=== PATIENT | male | born 1950 | race African-American/Black ===

== ENCOUNTER → 2018-09-15 | Outpatient (CLI) | payer BC ==
--- NOTE | 2018-09-16 13:53 | PCVCIMAG ---
APPROVED REPORT Study performed: 09/15/2018 14:23:02 EXAM: Comprehensive 2D, Doppler, and color-flow Echocardiogram Patient Location: Echo lab Room #: 2Status: routine BSA: 1.85 HR: 64 bpmBP: 128/68 mmHg Rhythm: NSR Other Information Study Quality: Good Risk Factors: Cardiac Risk Factors: HTN, Hyperlipidemia Indications CAD Hypertension/HDD S/P CABG.ESRD, 2D Dimensions IVSd: 8.78 (7-11mm)LVOT Diam: 23.70 (18-24mm) LVDd: 54.74 mm PWd: 9.76 (7-11mm)Ascending Ao: 34.44 (22-36mm) LVDs: 28.97 (25-40mm) Left Atrium: 39.64 (27-40mm) Aortic Root: 24.91 mm LV Single Plane 4CH: 56.83 % LV Single Plane 2CH: 66.61 % Volumes Left Atrial Volume (Systole) Single Plane 4CH: 69.08 mLSingle Plane 2CH: 66.44 mL Biplane LA Volume: 69.00 mLLA ESV Index: 37.00 mL/m2 Aortic Valve AoV Peak Sim.: 1.13 m/s AO Peak Gr.: 5.09 mmHgLVOT Max P.73 mmHg LVOT Max V: 0.97 m/s JOSE Vmax: 3.77 cm2 Mitral Valve E/A Ratio: 1.1 MV Decel. Time: 181.22 ms MV E Max Sim.: 1.02 m/s MV A Sim.: 0.92 m/s IVRT: 107.27 ms TDI E/Lateral E': 14.57E/Medial E': 12.75 Medial E' Sim.: 0.08 m/s Lateral E' Sim.: 0.07 m/s Pulmonary Valve PV Peak Sim.: 0.82 m/sPV Peak Gr.: 2.70 mmHg Pulmonary Vein P Vein S: 0.63 m/sP Vein A: 0.38 m/s P Vein D: 0.64 m/sP Vein A Dur.: 114.2 msec P Vein S/D Ratio: 0.98 Tricuspid Valve TR Peak Sim.: 2.43 m/s TR Peak Gr.: 23.74 mmHg TV Vmax: 0.71 m/sPA Pressure: 35.00 mmHg Left Ventricle The left ventricle is normal size. There is normal LV segmental wall motion. There is normal left ventricular wall thickness. Left ventricular systolic function is normal. The left ventricular ejection fraction is within the normal range. LVEF is 60-65%. Findings suggest the left atrial pressure is elevated. Right Ventricle The right ventricle is normal size. The right ventricular systolic function is normal. Atria Left atrium is mildly dilated. Right atrium is mildly dilated. Aortic Valve Aortic valve is trileaflet. The aortic valve is normal in structure and function. No aortic regurgitation is present. There is no aortic valvular stenosis. Mitral Valve The mitral valve is normal in structure. Moderate mitral regurgitation. No evidence of mitral valve stenosis. Tricuspid Valve The tricuspid valve is normal in structure. Moderate to severe tricuspid regurgitation with a PA pressure of 35 mmHg Mild pulmonary hypertension.. Pulmonic Valve The pulmonary valve is normal in structure. Trace pulmonic regurgitation. Great Vessels The aortic root is normal in size. The ascending aorta is normal in size. Aortic arch is normal in caliber. IVC is normal in size and collapses >50% with inspiration. Pericardium There is no pericardial effusion. There is no pleural effusion. <Conclusion> The left ventricle is normal size. LVEF is 60-65%. Left atrium is mildly dilated. Right atrium is mildly dilated. Aortic valve is trileaflet. The aortic valve is normal in structure and function. The mitral valve is normal in structure. Moderate mitral regurgitation. The tricuspid valve is normal in structure. Moderate to severe tricuspid regurgitation with a PA pressure of 35 mmHg Mild pulmonary hypertension.. The pulmonary valve is normal in structure. Trace pulmonic regurgitation.
== END | disposition home or self-care (01) ==
LOC: PCVCIMAG 14:23
PROVIDERS: ATTEND Internal Medicine
DX: I08.1 Rheumatic disorders of both mitral and tricuspid valves (principal); I25.10 Atherosclerotic heart disease of native coronary artery without angina pectoris; E78.5 Hyperlipidemia, unspecified; I12.0 Hypertensive chronic kidney disease with stage 5 chronic kidney disease or end stage renal disease; N18.6 End stage renal disease; Z95.1 Presence of aortocoronary bypass graft
CPT/HCPCS: 93306

== ENCOUNTER → 2018-09-30 | Outpatient (CLI) | payer BC ==
[~2018-09-30] MED LIST: REGADENOSON 0.4 MG/5 ML DISP.SYRIN. IV ONE
--- NOTE | 2018-09-30 14:12 | PCVCIMAG ---
APPROVED REPORT Imaging Protocol: Rest Tc-99m/Stress Tc-99m 1 day Study performed: 09/30/2018 08:59:33 Indication: CAD , Pre-Operative CV evaluation - Renal Transplant, Submax SE Patient Location: Out-Patient Stress Nurse: Christy Cagle RN NC Tech:Jami Mejia, [employer] Ht: 5 ft 11 in Wt: 150 lbs BSA: 1.87 m2 HR: 69 bpm BP: 166/87 mmHg BMI: 20.91 Medical History Medical History: HTN, Hyperlipidemia, Former Smoker, CAD Medications: Amlodipine, asirin, atorvastatin, lasix, imdur, metoprolol, nitro sl (held all meds this AM) Allergies: No known drug allergies Cardiac Risk Factors: Age Pretest Chest Pain Characteristics: No chest pain Resting Data Rest SPECT myocardial perfusion imaging was performed in supine position 45 minutes following the intravenous injection of 11.7 mCi of Tc-99m Sestamibi. Time of rest injection: 814 Date: 09/30/2018 Administration Route: IV Administration Site: Right AC Pharmacologic Stress Pharmacologic stress test was performed by injecting Regadenoson 0.4 mg IV push over 10-15 seconds immediately followed by the intravenous injection of 32.7 mCi of Tc-99m Sestamibi. Time of stress injection: 929 Date: 09/30/2018 Administration Route: IV Administration Site: Right AC Gated Stress SPECT was performed 45 minutes after stress injection. The images were gated to evaluate regional wall motion and calculate left ventricular ejection fraction. Stress Test Details Stress Test: Pharmacologic stress testing performed using 0.4 mg of regadenoson per 5 mL given IV over 10 seconds. Reason for pharmacologic stress test: submaximal SE, pt preferred to sit. HRMax Heart Rate (APMHR): 155 bpm Resting HR: 69 bpmTarget HR (85% APMHR): 131 bpm Max HR Achieved: 95 bpm % of APMHR: 61 Recovery HR: 81 bpm BP Resting BP: 166/87 mmHg Recovery BP: 159/84 mmHg BP response to stress: Normal blood pressure response to stress. ECG Resting ECG: SR with incomplete R BBB Stress ECG: Same Recovery ECG: Same Clinical Reason for Termination: Completed protocol Stress Symptoms: Chest tightness Exercise duration: 0 min 55 sec Symptoms resolved with caffeine. Stress ECG Conclusion 1. Adequate response to intravenous Lexiscan 2. Inadequate heart rate for ECG diagnosis Study Data Post stress, the left ventricular ejection was 63%.. SSS: 0 SRS: 0 SDS: 0 TID = 1.17. Perfusion There is a small area of moderately reduced uptake in the basal and mid segment of the inferolateral wall which is seen on the stress images and improves on the resting images. This area thickens and moves normally and is most consistent with attenuation artifact although a small region of partial ischemia cannot be excluded. Wall Motion Normal left ventricular wall motion. Nuclear Conclusion ECG Findings: non-diagnostic Clinical Findings: negative for ischemia Nuclear Findings: negative for ischemia although a small region of partial reversibility was noted may be related to ischemia or difference and isotope counts Exercise Capacity: not assessed Left Ventricular Function: normal 1. Low to intermediate risk study based on a small region of reversible defect in the inferolateral wall. His may be related to difference and isotope counts between stress and rest. Clinical correlation suggested <Conclusion> 1. Adequate response to intravenous Lexiscan 2. Inadequate heart rate for ECG diagnosis
== END | disposition home or self-care (01) ==
LOC: PCVCIMAG 07:51
PROVIDERS: ATTEND Internal Medicine
DX: I25.10 Atherosclerotic heart disease of native coronary artery without angina pectoris (principal); Z94.0 Kidney transplant status
CPT/HCPCS: 78452; 93017; A9500; J2785